=== PATIENT | male | born 1975 | race Two or more races ===

== ENCOUNTER 2024-08-13 16:26 | Emergency (ER) | payer OTHER ==
[~2024-08-13] VITALS: Ht 182.9 cm; Wt 77.1 kg
[2024-08-13 17:01] VITALS: BP 117/82; TEMP 98.2
[2024-08-13] MEDS ORDERED: POLY10DR OP (17:11)
[2024-08-13 17:13] VITALS: O2SAT 100
== END 2024-08-13 17:14 | disposition home or self-care (01) ==
LOC: ER 16:30
DX: H10.89 Other conjunctivitis (principal)